=== PATIENT | female | born 1965 | race Caucasian/White ===

== ENCOUNTER 2022-06-13 17:17 | Emergency (ER) | payer MEDICARE, OTHER ==
[~2022-06-13] VITALS: Ht 167 cm; Wt 113.4 kg
[2022-06-13 18:25] LABS: BASOPHILS # (AUTO) 0.1 10^3/uL (0.0-0.1); BASOPHILS % (AUTO) 1 % (0-10); EOSINOPHILS # (AUTO) 0.3 10^3/uL (0.0-0.3); EOSINOPHILS % (AUTO) 2 % (0-10); HEMATOCRIT 43 % (35-52); HEMOGLOBIN 14.4 g/dL (11.5-16.0); LYMPHOCYTES # (AUTO) 2.6 10^3/uL (1.0-4.0); LYMPHOCYTES % (AUTO) 25 % (12-44); MEAN CORPUSCULAR HEMOGLOBIN 30 pg (25-34); MEAN CORPUSCULAR HGB CONC 33 g/dL (32-36); MEAN CORPUSCULAR VOLUME 90 fL (80-99); MEAN PLATELET VOLUME 10.6 fL (9.0-12.2); MONOCYTES # (AUTO) 0.5 10^3/uL (0.0-1.0); MONOCYTES % (AUTO) 5 % (0-12); NEUTROPHILS # (AUTO) 6.9 10^3/uL (1.8-7.8); NEUTROPHILS % (AUTO) 67 % (42-75); PLATELET COUNT 273 10^3/uL (130-400); WHITE BLOOD COUNT 10.4 10^3/uL (4.3-11.0)
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
[2022-06-13 18:30] LABS: ALBUMIN 3.9 GM/DL (3.2-4.5); POTASSIUM 4.2 MMOL/L (3.6-5.0)
[2022-06-13 18:31] LABS: INR 1.1 (0.8-1.4); PROTHROMBIN TIME PATIENT 14.7 SEC (12.2-14.7)
[2022-06-13 18:31] LABS: CALCIUM 9.4 MG/DL (8.5-10.1)
[2022-06-13 18:32] LABS: TOTAL PROTEIN 7.7 GM/DL (6.4-8.2)
[2022-06-13 18:34] LABS: BILIRUBIN,TOTAL 0.5 MG/DL (0.1-1.0)
[2022-06-13 18:36] LABS: CREATININE SERUM 0.99 MG/DL (0.60-1.30)
[2022-06-13 18:39] LABS: MAGNESIUM 1.9 MG/DL (1.6-2.4)
--- NOTE | 2022-06-13 18:59 | Diagnostic Imaging Report ---
INDICATION: Chest pain. TECHNIQUE: Single view chest 6:44 PM. CORRELATION STUDY: None FINDINGS: Heart size enlarged. Vasculature overall within normal limits. Mildly prominent interstitial markings. No infiltrate. IMPRESSION: 1. Cardiac enlargement without overt failure. Dictated by: Dictated on workstation # [id number]
[2022-06-13] MEDS ORDERED: IOHEXOL 350 MG/ML 100 ML (OMNIPAQUE 350) VIAL IV ONE (19:15)
[2022-06-13] MEDS ORDERED: NS 100 ML (IVPB) BAG IV ONE (19:15)
[2022-06-13] MEDS ORDERED: NS IV 1000 ML 1,000 ML IV SCH (19:15)
--- NOTE | 2022-06-13 20:21 | Diagnostic Imaging Report ---
INDICATION: 57-year-old female, chest pain, shortness of air with elevated D-dimer. History of pulmonary embolus in 10/2021. CORRELATION: None FINDINGS: Heart size enlarged without disproportionate right heart strain. No pericardial effusion. Thoracic aorta unremarkable. Mild atherosclerotic plaque at the takeoff of the great vessels particularly subclavian artery. No pulmonary embolism. There does appear to be mildly prominent mediastinal and particularly right hilar lymphadenopathy. No consolidating infiltrate. There is mild groundglass opacities. There is a very faint 5 mm nodule anterior left upper lobe. No significant pleural effusion. Visualized portion of the upper abdomen demonstrate cholecystectomy changes. Mildly advanced degenerative changes through the thoracic spine. IMPRESSION: 1. No CTA evidence for pulmonary embolism. 2. Cardiac enlargement. Faint opacities of the lung abdullahi may reflect mild edema. 3. Mildly prominent mediastinal and hilar lymphadenopathy. 4. Very small 5 mm faint nodule left upper lobe. Follow-up imaging approximately 6-12 months recommended for follow-up. Dictated by: Dictated on workstation # [id number]
[2022-06-13] MEDS ORDERED: fentaNYL INJ 100 MCG/2 ML AMP IVP ONE (20:45)
[2022-06-13 21:45] VITALS: BP 148/86
== END 2022-06-13 21:45 | disposition home or self-care (01) ==
LOC: ER 17:19
DX: I51.7 Cardiomegaly (principal); R91.1 Solitary pulmonary nodule; R60.9 Edema, unspecified; R59.1 Generalized enlarged lymph nodes; R79.1 Abnormal coagulation profile; I10 Essential (primary) hypertension; E78.5 Hyperlipidemia, unspecified; I44.7 Left bundle-branch block, unspecified; F17.210 Nicotine dependence, cigarettes, uncomplicated; Z86.711 Personal history of pulmonary embolism; Z79.01 Long term (current) use of anticoagulants; Z79.899 Other long term (current) drug therapy
CPT/HCPCS: 36415; 71045; 71275; 80053; 82947; 83735; 83880; 84484; 85025; 85379; 85610; 85730; 93005; 93041